=== PATIENT | male | born 1985 | race American Indian/Alaskan Native ===

== ENCOUNTER 2020-09-19 09:19 | Emergency (ER) | payer OTHER ==
--- NOTE | 2020-09-19 09:27 | Event Note ---
ED Screening Note ED Screening Note: 35 yo aa male come with cp, sob and palpitations no fever or chills cough when he feels heart beat fast no known covid exposure anxious in triage hx dvt 10 y ago and was on lovenox; took him off it years ago no further issues pt is active thc- last yesterday cig daily etoh pmh dvt psh none dad dec cva mom dec bad heart vs n in triage rx daily- none This initial assessment/diagnostic orders/clinical plan/treatment(s) is/are subject to change based on patients health status, clinical progression and re- assessment by fellow clinical providers in the ED. Further treatment and workup at subsequent clinical providers discretion. Patient/guardian urged not to elope from the ED as their condition may be serious if not clinically assessed and managed. Initial orders include: ro pe
--- NOTE | 2020-09-19 09:43 | Emergency Department Report ---
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 Patient states he came to the emergency department today after he began having crampy epigastric pain yesterday similar to presentation of previous blood clot. Patient denies nausea vomiting or diarrhea, denies fever. Patient denies cough or sore throat. - Related Data Previous Rx's Medication Instructions Recorded Last Taken Type Famotidine [Acid Controller] 20 mg PO BID #60 tablet 09/19/20 Unknown Rx Allergies Allergy/AdvReac Type Severity Reaction Status Date / Time No Known Allergies Allergy Unverified 09/19/20 09:24 ED Review of Systems ROS: Stated complaint: CHEST PAIN; STOMACH PAIN Other details as noted in HPI Comment: All other systems reviewed and negative ED Past Medical Hx - Past Medical History Previous Medical History?: Yes Hx Pulmonary Embolism: Yes - Medications Home Medications: Home Medications Medication Instructions Recorded Confirmed Last Taken Type Famotidine [Acid Controller] 20 mg PO BID #60 tablet 09/19/20 Unknown Rx ED Physical Exam - General Limitations: No Limitations General appearance: alert, in no apparent distress - Head Head exam: Present: atraumatic, normocephalic - Eye Eye exam: Present: normal appearance - ENT ENT exam: Present: mucous membranes moist - Neck Neck exam: Present: normal inspection - Respiratory Respiratory exam: Present: normal lung sounds bilaterally. Absent: respiratory distress - Cardiovascular Cardiovascular Exam: Present: regular rate, normal rhythm. Absent: systolic murmur, diastolic murmur, rubs, gallop - GI/Abdominal GI/Abdominal exam: Present: soft, normal bowel sounds - Rectal Rectal exam: Present: deferred - Extremities Exam Extremities exam: Present: normal inspection - Back Exam Back exam: Present: normal inspection - Neurological Exam Neurological exam: Present: alert, oriented X3 - Psychiatric Psychiatric exam: Present: normal affect, normal mood - Skin Skin exam: Present: warm, dry, intact, normal color. Absent: rash ED Course Vital Signs 01/19/21 01/19/21 01/19/21 09:24 09:35 10:00 Temperature 98.1 F Pulse Rate 86 80 75 Respiratory 20 18 15 Rate Blood Pressure 136/71 Blood Pressure 131/31 [Right] O2 Sat by Pulse 98 100 97 Oximetry - Reevaluation(s) Reevaluation #1: 09/19/20 11:13 Patient reevaluated and remains in no acute distress. Abdomen soft nontender. ED Medical Decision Making - Lab Data Result diagrams: 09/19/20 10:01 09/19/20 10:01 Labs 09/19/20 09/19/20 09/19/20 10:01 10:01 10:01 WBC 9.4 RBC 4.34 Hgb 14.1 Hct 41.8 MCV 96 H MCH 33 H MCHC 34 RDW 13.6 Plt Count 244 Lymph % (Auto) 35.6 H Coleman % (Auto) 6.2 Eos % (Auto) 4.1 Baso % (Auto) 0.9 Lymph # (Auto) 3.3 Coleman # (Auto) 0.6 Eos # (Auto) 0.4 Baso # (Auto) 0.1 Seg Neutrophils % 53.2 Seg Neutrophils # 5.0 PT 12.6 INR 0.96 APTT 28.1 D-Dimer 142.76 Sodium Potassium Chloride Carbon Dioxide Anion Gap BUN Creatinine Estimated GFR BUN/Creatinine Ratio Glucose Calcium Total Bilirubin AST ALT Alkaline Phosphatase Troponin T < 0.010 Total Protein Albumin Albumin/Globulin Ratio Lipase 09/19/20 10:01 WBC RBC Hgb Hct MCV MCH MCHC RDW Plt Count Lymph % (Auto) Coleman % (Auto) Eos % (Auto) Baso % (Auto) Lymph # (Auto) Coleman # (Auto) Eos # (Auto) Baso # (Auto) Seg Neutrophils % Seg Neutrophils # PT INR APTT D-Dimer Sodium 141 Potassium 3.6 Chloride 106.3 Carbon Dioxide 27 Anion Gap 11 BUN 13 Creatinine 1.1 Estimated GFR > 60 BUN/Creatinine Ratio 12 Glucose 100 Calcium 8.7 Total Bilirubin 0.20 AST 16 ALT 12 Alkaline Phosphatase 61 Troponin T Total Protein 5.9 L Albumin 3.8 L Albumin/Globulin Ratio 1.8 Lipase 34 Lab Results 09/19/20 09/19/20 09/19/20 Range/Units 10:01 10:01 10:01 WBC 9.4 (4.5-11.0) K/mm3 RBC 4.34 (3.65-5.03) M/mm3 Hgb 14.1 (11.8-15.2) gm/dl Hct 41.8 (35.5-45.6) % MCV 96 H (84-94) fl MCH 33 H (28-32) pg MCHC 34 (32-34) % RDW 13.6 (13.2-15.2) % Plt Count 244 (140-440) K/mm3 Lymph % (Auto) 35.6 H (13.4-35.0) % Coleman % (Auto) 6.2 (0.0-7.3) % Eos % (Auto) 4.1 (0.0-4.3) % Baso % (Auto) 0.9 (0.0-1.8) % Lymph # (Auto) 3.3 (1.2-5.4) K/mm3 Coleman # (Auto) 0.6 (0.0-0.8) K/mm3 Eos # (Auto) 0.4 (0.0-0.4) K/mm3 Baso # (Auto) 0.1 (0.0-0.1) K/mm3 Seg Neutrophils % 53.2 (40.0-70.0) % Seg Neutrophils # 5.0 (1.8-7.7) K/mm3 PT 12.6 (12.2-14.9) Sec. INR 0.96 (0.87-1.13) APTT 28.1 (24.2-36.6) Sec. D-Dimer 142.76 (0-234) ng/mlDDU Sodium (137-145) mmol/L Potassium (3.6-5.0) mmol/L Chloride (98-107) mmol/L Carbon Dioxide (22-30) mmol/L Anion Gap mmol/L BUN (9-20) mg/dL Creatinine (0.8-1.3) mg/dL Estimated GFR ml/min BUN/Creatinine Ratio % Glucose (75-100) mg/dL Calcium (8.4-10.2) mg/dL Total Bilirubin (0.1-1.2) mg/dL AST (5-40) units/L ALT (7-56) units/L Alkaline Phosphatase (35-129) units/L Troponin T < 0.010 (0.00-0.029) ng/mL Total Protein (6.3-8.2) g/dL Albumin (3.9-5) g/dL Albumin/Globulin Ratio % Lipase (13-60) units/L 09/19/20 Range/Units 10:01 WBC (4.5-11.0) K/mm3 RBC (3.65-5.03) M/mm3 Hgb (11.8-15.2) gm/dl Hct (35.5-45.6) % MCV (84-94) fl MCH (28-32) pg MCHC (32-34) % RDW (13.2-15.2) % Plt Count (140-440) K/mm3 Lymph % (Auto) (13.4-35.0) % Coleman % (Auto) (0.0-7.3) % Eos % (Auto) (0.0-4.3) % Baso % (Auto) (0.0-1.8) % Lymph # (Auto) (1.2-5.4) K/mm3 Coleman # (Auto) (0.0-0.8) K/mm3 Eos # (Auto) (0.0-0.4) K/mm3 Baso # (Auto) (0.0-0.1) K/mm3 Seg Neutrophils % (40.0-70.0) % Seg Neutrophils # (1.8-7.7) K/mm3 PT (12.2-14.9) Sec. INR (0.87-1.13) APTT (24.2-36.6) Sec. D-Dimer (0-234) ng/mlDDU Sodium 141 (137-145) mmol/L Potassium 3.6 (3.6-5.0) mmol/L Chloride 106.3 (98-107) mmol/L Carbon Dioxide 27 (22-30) mmol/L Anion Gap 11 mmol/L BUN 13 (9-20) mg/dL Creatinine 1.1 (0.8-1.3) mg/dL Estimated GFR > 60 ml/min BUN/Creatinine Ratio 12 % Glucose 100 (75-100) mg/dL Calcium 8.7 (8.4-10.2) mg/dL Total Bilirubin 0.20 (0.1-1.2) mg/dL AST 16 (5-40) units/L ALT 12 (7-56) units/L Alkaline Phosphatase 61 (35-129) units/L Troponin T (0.00-0.029) ng/mL Total Protein 5.9 L (6.3-8.2) g/dL Albumin 3.8 L (3.9-5) g/dL Albumin/Globulin Ratio 1.8 % Lipase 34 (13-60) units/L - EKG Data -: EKG Interpreted by Me (Sinus rhythm at 74, no ST-T changes, normal QRS) Critical care attestation.: If time is entered above; I have spent that time in minutes in the direct care of this critically ill patient, excluding procedure time. ED Disposition Clinical Impression: Epigastric pain Disposition: TO HOME OR SELFCARE Is pt being admited?: No Condition: Stable Instructions: Abdominal Pain, Adult, Pain Without a Known Cause Additional Instructions: Follow-up with primary care doctor in 1 to 2 days for reevaluation. Please note further testing may be noted for definitive diagnosis including COVID-19 testing. Prescriptions: Famotidine [Acid Controller] 20 mg PO BID #60 tablet Referrals: PRIMARY CARE, [Primary Care Provider] - 3-5 Days
--- NOTE | 2020-09-19 10:41 | XRay Report ---
CHEST 2 VIEWS INDICATION / CLINICAL INFORMATION: Chest Pain. COMPARISON: None available. FINDINGS: SUPPORT DEVICES: None. HEART / MEDIASTINUM: No significant abnormality. LUNGS / PLEURA: No significant pulmonary or pleural abnormality. No pneumothorax. ADDITIONAL FINDINGS: No significant additional findings. IMPRESSION: No acute cardiopulmonary abnormality. Signer Name: Eugenio Rene MD Signed: 09/19/2020 10:36 AM Workstation Name: [id number]
[2020-09-19 10:42] LABS: Basophils # (Auto) 0.1 K/mm3 (0.0-0.1); Basophils % (Auto) 0.9 % (0.0-1.8); Eosinophils # (Auto) 0.4 K/mm3 (0.0-0.4); Eosinophils % (Auto) 4.1 % (0.0-4.3); Hematocrit 41.8 % (35.5-45.6); Hemoglobin 14.1 gm/dl (11.8-15.2); Lymphocytes # (Auto) 3.3 K/mm3 (1.2-5.4); Lymphocytes % (Auto) 35.6 % (13.4-35.0); Mean Corpuscular HGB Conc 34 % (32-34); Mean Corpuscular Volume 96 fl (84-94); Monocytes # (Auto) 0.6 K/mm3 (0.0-0.8); Monocytes % (Auto) 6.2 % (0.0-7.3); Platelet Count 244 K/mm3 (140-440); Red Blood Count 4.34 M/mm3 (3.65-5.03); Red Cell Distribution Width 13.6 % (13.2-15.2)
[2020-09-19 10:49] LABS: Alanine Aminotransferase 12 units/L (7-56); Albumin 3.8 g/dL (3.9-5); BUN/Creatinine Ratio 12; Blood Urea Nitrogen 13 mg/dL (9-20); Calcium 8.7 mg/dL (8.4-10.2); Hemolysis Index 7
[2020-09-19 10:51] LABS: INR 0.96 (0.87-1.13)
[2020-09-19 10:52] LABS: Partial Thromboplastin Time 28.1 Sec. (24.2-36.6)
[2020-09-19 11:37] VITALS: BP 128/68
== END 2020-09-19 11:36 | disposition home or self-care (01) ==
LOC: ED 09:19
DX: R10.13 Epigastric pain (principal); Z79.899 Other long term (current) drug therapy
CPT/HCPCS: 36415; 71046; 80053; 83690; 84484; 85025; 85379; 85610; 85730; 93005